=== PATIENT | female | born 1990 | race Two or more races ===

== ENCOUNTER 2021-05-26 08:05 | Emergency (ER) | payer MEDICAID, OTHER ==
[~2021-05-26] VITALS: Ht 154.9 cm; Wt 103.0 kg
[2021-05-26 08:53] VITALS: BP 142/72
== END 2021-05-26 10:00 | disposition home or self-care (01) ==
LOC: ER 08:05
DX: O26.892 Other specified pregnancy related conditions, second trimester (principal); S46.912A Strain of unspecified muscle, fascia and tendon at shoulder and upper arm level, left arm, initial encounter; S63.502A Unspecified sprain of left wrist, initial encounter; S63.92XA Sprain of unspecified part of left wrist and hand, initial encounter; S50.02XA Contusion of left elbow, initial encounter; O44.42 Low lying placenta NOS or without hemorrhage, second trimester; Z3A.18 18 weeks gestation of pregnancy; V43.52XA Car driver injured in collision with other type car in traffic accident, initial encounter; Y93.89 Activity, other specified; Y92.410 Unspecified street and highway as the place of occurrence of the external cause; Y99.8 Other external cause status
CPT/HCPCS: 29125; 76815